=== PATIENT | female | born 1940 ===

== ENCOUNTER 2019-05-31 10:14 | Emergency (ER) | payer OTHER ==
[~2019-05-31] VITALS: Ht 172.7 cm; Wt 48.1 kg
[2019-05-31] MEDS ORDERED: VOLTAREN100 GM TOP (15:34)
[2019-05-31] MEDS ORDERED: ORPHENADRINE C100 MG PO (15:34)
[2019-05-31] MEDS ORDERED: KETO10TA2 PO (15:34)
[2019-05-31] MEDS ORDERED: SYNTHROID75 MCG PO (15:34)
== END 2019-05-31 15:40 ==
LOC: ER 10:14
DX: M75.81 Other shoulder lesions, right shoulder (principal); R07.89 Other chest pain